=== PATIENT | male | born 1945 | race Caucasian/White ===

== ENCOUNTER 2016-08-22 21:02 | Emergency (ER) | payer MEDICARE, BC ==
[2016-08-22 21:33] VITALS: TEMP 97.9
[2016-08-22] MEDS ORDERED: Aspirin 325 mg EC Tablets PO STA (21:40)
[2016-08-22] MEDS ORDERED: Aspirin 325 mg EC Tablets PO ONE (21:54)
[2016-08-22 21:56] LABS: BASO % 0.5 % (0.0-2.0); EOS # 0.4 K/uL (0.0-0.7); EOS % 5.7 % (0.0-4.0); HEMATOCRIT 42.1 % (35.0-51.0); LYMPH # 1.9 K/uL (1.0-4.3); LYMPH % 25.7 % (20.0-40.0); MEAN CELL VOLUME 93.8 fL (80.0-94.0); MEAN CORPUSCULAR HEMOGLOBIN 31.9 pg (27.0-31.0); MEAN PLATELET VOLUME 8.3 fL (7.2-11.7); MONO # 0.8 K/uL (0.0-0.8); MONO % 10.2 % (0.0-10.0); RED CELL DISTRIBUTION WIDTH 13.7 % (11.5-14.5); WHITE BLOOD COUNT 7.5 K/uL (4.8-10.8)
[2016-08-22 22:10] LABS: CHLORIDE 101 mmol/L (98-107); POTASSIUM 4.4 mmol/L (3.6-5.2); SODIUM 136 mmol/L (132-148)
[2016-08-22 22:12] LABS: ALB/GLOB RATIO 1.1 (1.0-2.1); AST/SGOT 48 U/L (17-59); BILIRUBIN,TOTAL 0.8 mg/dL (0.2-1.3); CARBON DIOXIDE 23 mmol/L (22-30); GFR AFRICAN-AMERICAN > 60; TOTAL PROTEIN 7.5 g/dL (6.3-8.3)
[2016-08-22 22:13] LABS: ALKALINE PHOSPHATASE 92 U/L (38-126); ALT/SGPT 48 U/L (21-72); BLOOD UREA NITROGEN 13 mg/dL (9-20); CALCIUM 8.4 mg/dl (8.6-10.4); GLUCOSE,RANDOM 93 mg/dL (75-110)
--- NOTE | 2016-08-22 22:43 | C.PDOC ---
History Of Present Illness Patient is a 71 year old male who presents to the ER with a complaint of left upper quadrant abdominal pain. Patient states the pain started after eating dinner and radiates towards his chest. Denies any shortness of breath, nausea, or vomiting. Time Seen by Provider: 08/22/16 21:36 Chief Complaint (Nursing): Chest Pain History Per: Patient History/Exam Limitations: no limitations Onset/Duration Of Symptoms: Hrs Current Symptoms Are (Timing): Still Present Context: Food Associated Symptoms: denies: Nausea Past Medical History Reviewed: Historical Data, Nursing Documentation, Vital Signs Vital Signs: Last Vital Signs Temp 97.9 F 08/22/16 21:13 Pulse 80 08/22/16 22:53 Resp 14 08/22/16 22:53 BP 130/80 08/22/16 22:53 Pulse Ox 98 08/23/16 00:49 - Medical History PMH: HTN, Hypercholesterolemia Family History: States: Unknown Family Hx - Social History Hx Alcohol Use: No Hx Substance Use: No - Immunization History Hx Tetanus Toxoid Vaccination: No Hx Influenza Vaccination: No Hx Pneumococcal Vaccination: No Review Of Systems Except As Marked, All Systems Reviewed And Found Negative. Constitutional: Negative for: Fever, Chills Respiratory: Negative for: Shortness of Breath Gastrointestinal: Positive for: Other (Left upper quadrant pain, radiating to chest). Negative for: Nausea, Vomiting Physical Exam - Physical Exam Appears: Well, Non-toxic, No Acute Distress Skin: Normal Color, Warm, Dry Head: Atraumatic, Normacephalic Eye(s): bilateral: Normal Inspection Oral Mucosa: Moist Chest: Symmetrical Cardiovascular: Rhythm Regular Respiratory: Normal Breath Sounds, No Accessory Muscle Use, No Rales, No Rhonchi , No Wheezing Gastrointestinal/Abdominal: Soft, No Tenderness, No Distention, No Guarding, No Rebound, Other (Obese) Extremity: Normal ROM Neurological/Psych: Oriented x3, Normal Speech, Normal Cognition ED Course And Treatment - Laboratory Results Result Diagrams: 08/22/16 21:53 08/22/16 21:53 Lab Interpretation: Normal (trop/bnp neg,.) ECG: Interpreted By Me ECG Rhythm: Sinus Rhythm ECG Interpretation: Normal Rate From EC O2 Sat by Pulse Oximetry: 98 (room air) Pulse Ox Interpretation: Normal - Radiology CXR: Interpreted by Me CXR Interpretation: Yes: No Acute Disease Progress Note: Chest X-ray and EKG ordered and reviewed. Ecotrin PO administered. Reevaluation Time: 22:43 Reassessment Condition: Unchanged (remains asymptomatic) Medical Decision Making Medical Decision Making: atypical CP, not angina normal w/u. defer obs as 2 hrs since CP may have revealed + trop if cardiac. s/s NOT c/w cardiac s/s. Disposition Doctor Will See Patient In The: Office Counseled Patient/Family Regarding: Studies Performed, Diagnosis - Disposition Referrals: Chris Castañeda MD [Staff Provider] - Disposition: HOME/ ROUTINE Disposition Time: 22:44 Condition: GOOD Additional Instructions: sigue sedrick Castañeda césar necessario Instructions: Chest Pain (ED) Print Language: HEBREW - Clinical Impression Clinical Impression: Chest discomfort - Scribe Statement The provider has reviewed the documentation as recorded by the Scribe Stef Reddy All medical record entries made by the Scribe were at my direction and personally dictated by me. I have reviewed the chart and agree that the record accurately reflects my personal performance of the history, physical exam, medical decision making, and the department course for this patient. I have also personally directed, reviewed, and agree with the discharge instructions and disposition.
[2016-08-22 22:54] VITALS: BP 130/80; PULSE 80; RESP 14
[2016-08-23 00:46] VITALS: O2SAT 98
--- NOTE | 2016-08-23 14:41 | RAD ---
PROCEDURE: CHEST RADIOGRAPH, 1 VIEW HISTORY: SOB COMPARISON: None available. FINDINGS: LUNGS: Poor inspiration with low lung volumes, mild crowded bronchovascular markings and mild bibasilar atelectasis. PLEURA: No pneumothorax or pleural fluid seen. CARDIOVASCULAR: Heart size upper limits of normal. The aorta is slightly ectatic and uncoiled. OSSEOUS STRUCTURES: No significant abnormalities. VISUALIZED UPPER ABDOMEN: Normal. OTHER FINDINGS: None. IMPRESSION: Poor inspiration with low lung volumes, mild crowded bronchovascular markings and mild bibasilar atelectasis.
--- NOTE | 2016-08-25 07:58 | CARD ---
APPROVED REPORT EKG Measurement Heart [id number] <Conclusion> Normal sinus rhythm Normal ECG
== END 2016-08-22 22:54 | disposition home or self-care (01) ==
LOC: C.ER 21:02
DX: R07.89 Other chest pain (principal)